=== PATIENT | male | born 1975 | race African-American/Black ===

== ENCOUNTER 2024-12-04 06:42 | Inpatient (IN) | payer OTHER ==
[~2024-12-04] VITALS: Ht 180.3 cm; Wt 99.4 kg
[2024-12-04] MEDS: IV NS 0.9% 500 ML BAG IV ONE (07:30)
[2024-12-04 07:31] LABS: BASOPHILS % (AUTO) 0.3 % (0.0-2.0); EOSINOPHILS % (AUTO) 0.2 % (0.0-6.0); HEMATOCRIT 51 % (39-51); HEMOGLOBIN 16.7 g/dL (13.5-17.5); LYMPHOCYTES # (AUTO) 0.8 K/uL (0.8-4.8); LYMPHOCYTES % (AUTO) 7.1 % (20.0-44.0); MEAN CORPUSCULAR HEMOGLOBIN 31 PG (26.0-33.0); MEAN CORPUSCULAR HGB CONC 33 g/dl (31.0-36.0); MEAN CORPUSCULAR VOLUME 96 fL (80-96); MONOCYTES # (AUTO) 0.5 K/uL (0.1-1.30); MONOCYTES % (AUTO) 4.2 % (2.0-12.0); NEUTROPHILS # (AUTO) 9.6 K/uL (1.8-8.9); NEUTROPHILS % (AUTO) 88.2 % (43.0-81.0); PLATELET COUNT (AUTO) 234 K/uL (150-450); RED BLOOD CELL COUNT(AUTO) 5.35 MIL/uL (4.5-6.0); RED CELL DISTRIBUTION WIDTH 14.5 % (11.5-15.0); WHITE BLOOD COUNT (AUTO) 10.9 K/uL (4.3-11.0)
[2024-12-04] MEDS ORDERED: ONDANSETRON HCL/PF 4 MG/2 ML VIAL ONE (07:34)
[2024-12-04 07:39] LABS: CALCIUM, SERUM 9.4 mg/dL (8.5-10.1); CARBON DIOXIDE 17 mmol/L (21-32); CHLORIDE 95 mmol/L (98-107); CREATININE 2.1 mg/dL (0.6-1.3); GLUCOSE 207 mg/dL (74-106); POTASSIUM 4.3 mmol/L (3.5-5.1); SODIUM SERUM 138 mmol/L (136-145); UREA NITROGEN, BLOOD 22 mg/dL (7-18)
[2024-12-04 07:45] LABS: ALANINE AMINOTRANSFERASE 12 U/L (12-78); ALKALINE PHOSPHATASE 93 U/L (46-116); ASPARTATE AMINOTRANSFERASE 18 U/L (15-37); BILIRUBIN,DIRECT 0.3 mg/dL (0.0-0.2); INR 1.06 (0.91-1.10); PARTIAL THROMBOPLASTIN TIME 25.9 SEC (24.3-34.3); PROTHROMBIN TIME 11.2 SECS (9.2-11.1); TOTAL PROTEIN, SERUM 8.3 g/dL (6.4-8.2)
[2024-12-04 07:46] LABS: ALCOHOL, BLOOD < 10 mg/dL (0-10)
[2024-12-04] MEDS: ONDANSETRON HCL/PF 4 MG/2 ML VIAL IVP ONE (07:53)
[2024-12-04] MEDS ORDERED: EMPA1TAB21 PO (08:48)
[2024-12-04] MEDS ORDERED: INSU100I30 SQ (08:48)
[2024-12-04] MEDS ORDERED: ZEPBOUND SQ (08:48)
[2024-12-04] MEDS ORDERED: ONDANSETRON HCL/PF 4 MG/2 ML VIAL IVP PRN (09:00)
[2024-12-04] MEDS ORDERED: MAG HYDROX/AL HYDROX/SIMETH 30 ML UDC PO PRN (09:00)
[2024-12-04] MEDS ORDERED: DEXTROSE 50%-WATER 50 ML DISP.SYRIN IV PRN (09:00)
[2024-12-04] MEDS ORDERED: PANTOPRAZOLE 40 MG VIAL IV SCH (09:00)
[2024-12-04 16:00] VITALS: BP 119/71; TEMP 98.2; O2SAT 100
[2024-12-04 16:05] LABS: AMPHETAMINE, URINE NEGATIVE (NEGATIVE); BARBITURATE, URINE NEGATIVE (NEGATIVE); BENZODIAZEPINE, URINE NEGATIVE (NEGATIVE); CANNABINOID, URINE NEGATIVE (NEGATIVE); COCCAINE, URINE NEGATIVE (NEGATIVE); OPIATE, URINE NEGATIVE (NEGATIVE); PHENCYCLIDINE SCREEN,URINE NEGATIVE (NEGATIVE)
[2024-12-04] MEDS: BLOOD SUGAR DIAGNOSTIC 1 EACH STRIP IN SCH (17:38)
[2024-12-04] MEDS: INSULIN REGULAR, HUMAN 100 UNIT/ML 3 ML VIAL SQ PRN (17:40)
[2024-12-04] MEDS: IV NS 0.9% 1,000 ML IV SCH (18:58)
[2024-12-04 20:00] VITALS: BP 111/65; TEMP 98.1; O2SAT 98
[2024-12-04] MEDS: MENTHOL/CETYLPYRD (CEPACOL) 1 LOZ LOZENGE PO PRN (21:00)
[2024-12-04 22:58] VITALS: BP 111/65; TEMP 98.1; O2SAT 98
[2024-12-05 06:46] LABS: BASOPHILS % (AUTO) 0.6 % (0.0-2.0); EOSINOPHILS # (AUTO) 0.2 K/uL (0.0-0.7); EOSINOPHILS % (AUTO) 3.6 % (0.0-6.0); HEMATOCRIT 44 % (39-51); HEMOGLOBIN 14.4 g/dL (13.5-17.5); LYMPHOCYTES # (AUTO) 1.6 K/uL (0.8-4.8); MEAN CORPUSCULAR HEMOGLOBIN 31 PG (26.0-33.0); MEAN CORPUSCULAR HGB CONC 33 g/dl (31.0-36.0); MEAN CORPUSCULAR VOLUME 94 fL (80-96); MONOCYTES # (AUTO) 0.7 K/uL (0.1-1.30); MONOCYTES % (AUTO) 11.8 % (2.0-12.0); NEUTROPHILS # (AUTO) 3.6 K/uL (1.8-8.9); PLATELET COUNT (AUTO) 198 K/uL (150-450); RED BLOOD CELL COUNT(AUTO) 4.61 MIL/uL (4.5-6.0); RED CELL DISTRIBUTION WIDTH 14.3 % (11.5-15.0); WHITE BLOOD COUNT (AUTO) 6.3 K/uL (4.3-11.0)
[2024-12-05 06:48] LABS: CALCIUM, SERUM 8.7 mg/dL (8.5-10.1); CREATININE 1.9 mg/dL (0.6-1.3); MAGNESIUM 2.1 mg/dL (1.8-2.4); PHOSPHORUS 2.6 mg/dL (2.5-4.9); POTASSIUM 3.4 mmol/L (3.5-5.1)
[2024-12-05 07:00] VITALS: BP 116/65; TEMP 97.9; O2SAT 96
[2024-12-05] MEDS: PANTOPRAZOLE 40 MG TABLET.DR PO SCH (08:51)
[2024-12-05] MEDS: POTASSIUM CHLORIDE 10 MEQ TABLET.SA PO ONE (10:55)
[2024-12-05 16:00] VITALS: BP 126/86; TEMP 98.2; O2SAT 99
[2024-12-05] MEDS: ACETAMINOPHEN 325 MG TABLET PO PRN (18:48)
[2024-12-05] MEDS: MAGNESIUM HYDROXIDE 30 ML UDC PO PRN (18:51)
[2024-12-05 20:00] VITALS: BP 122/81; TEMP 98.1; O2SAT 86
[2024-12-05] MEDS: IV NS 0.9% 1,000 ML IV PRN (20:35)
[2024-12-06 00:06] LABS: APPEARANCE,URINE CLEAR (CLEAR); BILIRUBIN,URINE 1+ (NEGATIVE); BLOOD, URINE NEGATIVE Ery/uL (NEGATIVE); COLOR,URINE YELLOW (YELLOW); KETONES,URINE 1+ mg/dL (NEGATIVE); LEUKOCYTE ESTERASE ,URINE NEGATIVE (NEGATIVE); NITRITE, URINE NEGATIVE (NEGATIVE); PH,URINE 5.5 (5.0-8.0); PROTEIN,URINE NEGATIVE (NEGATIVE); UGLUCOSE 3+ mg/dL (NEGATIVE); UROBILINOGEN,URINE 0.2 EU/dL (0.2)
[2024-12-06 00:18] LABS: ADD URINE CULTURE NO; BACTERIA,URINE None seen /HPF (None Seen); RBC,URINE NONE SEEN /HPF (0-2); SQUAMOUS EPITHELIAL CELL,UR None Seen /HPF (None Seen); WBC,URINE 0-2 /HPF (0-3)
[2024-12-06 00:26] LABS: CREATININE, URINE 159.3 MG/DL (30.0-125.0); URINE TOTAL PROTEIN 22.6 mg/dL (0-11.9)
[2024-12-06 01:58] LABS: EOSINOPHIL,URINE None Seen
[2024-12-06 07:00] VITALS: BP 151/95; TEMP 97.9; O2SAT 99
[2024-12-06 07:14] LABS: BASOPHILS % (AUTO) 0.5 % (0.0-2.0); EOSINOPHILS # (AUTO) 0.3 K/uL (0.0-0.7); EOSINOPHILS % (AUTO) 4.2 % (0.0-6.0); HEMATOCRIT 43 % (39-51); HEMOGLOBIN 14.2 g/dL (13.5-17.5); LYMPHOCYTES # (AUTO) 1.8 K/uL (0.8-4.8); LYMPHOCYTES % (AUTO) 27.7 % (20.0-44.0); MEAN CORPUSCULAR HEMOGLOBIN 32 PG (26.0-33.0); MEAN CORPUSCULAR HGB CONC 33 g/dl (31.0-36.0); MEAN CORPUSCULAR VOLUME 95 fL (80-96); MONOCYTES # (AUTO) 0.7 K/uL (0.1-1.30); MONOCYTES % (AUTO) 11.3 % (2.0-12.0); NEUTROPHILS # (AUTO) 3.7 K/uL (1.8-8.9); NEUTROPHILS % (AUTO) 56.3 % (43.0-81.0); PLATELET COUNT (AUTO) 183 K/uL (150-450); RED CELL DISTRIBUTION WIDTH 14.4 % (11.5-15.0); WHITE BLOOD COUNT (AUTO) 6.5 K/uL (4.3-11.0)
[2024-12-06 07:56] LABS: BILIRUBIN,TOTAL 0.8 mg/dL (0.2-1.0); CALCIUM, SERUM 8.5 mg/dL (8.5-10.1); CREATININE 1.6 mg/dL (0.6-1.3); MAGNESIUM 2.2 mg/dL (1.8-2.4); PHOSPHORUS 1.9 mg/dL (2.5-4.9); POTASSIUM 3.2 mmol/L (3.5-5.1); TOTAL PROTEIN, SERUM 6.5 g/dL (6.4-8.2)
[2024-12-06] MEDS: LORAZEPAM 0.5 MG TABLET PO ONE (10:59)
[2024-12-06] MEDS: POTASSIUM CHLORIDE 10 MEQ TABLET.SA PO SCH (11:06)
[2024-12-06 13:51] VITALS: BP 150/89; TEMP 97.6; O2SAT 100
[2024-12-06 13:52] VITALS: BP 132/86; TEMP 97.7; O2SAT 98
[2024-12-06 13:53] VITALS: BP 129/83; TEMP 97.9; O2SAT 98
[2024-12-06 16:00] VITALS: BP 147/84; TEMP 98.4; O2SAT 98
[2024-12-06] MEDS: K PHOS NEUTRAL 250 MG TABLET PO ONE (17:50)
[2024-12-06 20:00] VITALS: BP_SYST 141; BP_SYST 149; BP_SYST 162; BP_SYST 169; BP_DIAS 92; BP_DIAS 99; TEMP 98.2; O2SAT 100
[2024-12-06] MEDS: ZOLPIDEM TARTRATE 5 MG TABLET PO PRN (22:46)
[2024-12-07] VITALS (7 sets, daily range): BP systolic 142–156; BP diastolic 64–96; TEMP 97.2–98.1; O2SAT 96–99
[2024-12-07 07:24] LABS: CALCIUM, SERUM 8.3 mg/dL (8.5-10.1); CREATININE 1.3 mg/dL (0.6-1.3); POTASSIUM 3.1 mmol/L (3.5-5.1)
[2024-12-07] MEDS: POTASSIUM CL. PREMIX PERIPHER. 50 ML IV SCH (08:50)
[2024-12-07 09:07] LABS: PTH, INTACT 20 pg/mL (15-65)
[2024-12-07] MEDS: POTASSIUM CHLORIDE 20 MEQ TAB.PRT.SR PO SCH (10:14)
[2024-12-07 10:24] LABS: CHOLESTEROL 172 mg/dL (<200); HDL CHOLESTEROL 63 mg/dL (40-60); LDL 88 mg/dL (0-99); TRIGLYCERIDES 87 mg/dL (30-150)
[2024-12-07] MEDS ORDERED: METFORMIN 500 MG TABLET PO SCH (17:00)
[2024-12-07] MEDS ORDERED: DEXTROSE 50%-WATER 50 ML DISP.SYRIN IV PRN (17:00)
[2024-12-07] MEDS: BLOOD SUGAR DIAGNOSTIC 1 EACH STRIP IN SCH (17:31)
[2024-12-07] MEDS: INSULIN REGULAR, HUMAN 100 UNIT/ML 3 ML VIAL SQ PRN (17:33)
[2024-12-08] VITALS: BP 158/101; TEMP 98.2; O2SAT 100
[2024-12-08 00:32] VITALS: BP 158/101; TEMP 98.2; O2SAT 100
[2024-12-08 04:00] VITALS: BP 163/79; TEMP 97.7; O2SAT 100
[2024-12-08 06:28] VITALS: BP 163/79; TEMP 97.7; O2SAT 100
[2024-12-08 06:55] LABS: BASOPHILS # (AUTO) 0.1 K/uL (0.0-0.2); BASOPHILS % (AUTO) 1.1 % (0.0-2.0); EOSINOPHILS # (AUTO) 0.2 K/uL (0.0-0.7); EOSINOPHILS % (AUTO) 5.5 % (0.0-6.0); HEMATOCRIT 41 % (39-51); HEMOGLOBIN 13.6 g/dL (13.5-17.5); LYMPHOCYTES # (AUTO) 1.6 K/uL (0.8-4.8); LYMPHOCYTES % (AUTO) 35.7 % (20.0-44.0); MEAN CORPUSCULAR HEMOGLOBIN 31 PG (26.0-33.0); MEAN CORPUSCULAR HGB CONC 33 g/dl (31.0-36.0); MEAN CORPUSCULAR VOLUME 95 fL (80-96); MONOCYTES # (AUTO) 0.5 K/uL (0.1-1.30); MONOCYTES % (AUTO) 10.1 % (2.0-12.0); NEUTROPHILS # (AUTO) 2.2 K/uL (1.8-8.9); NEUTROPHILS % (AUTO) 47.6 % (43.0-81.0); PLATELET COUNT (AUTO) 167 K/uL (150-450); RED BLOOD CELL COUNT(AUTO) 4.36 MIL/uL (4.5-6.0); RED CELL DISTRIBUTION WIDTH 13.7 % (11.5-15.0); WHITE BLOOD COUNT (AUTO) 4.6 K/uL (4.3-11.0)
[2024-12-08 07:38] LABS: ALBUMIN 2.8 g/dL (3.4-5.0); BILIRUBIN,TOTAL 0.6 mg/dL (0.2-1.0); CALCIUM, SERUM 8.5 mg/dL (8.5-10.1); CREATININE 1.2 mg/dL (0.6-1.3); PHOSPHORUS 2.7 mg/dL (2.5-4.9); POTASSIUM 3.4 mmol/L (3.5-5.1)
[2024-12-08 08:00] VITALS: BP 152/89; TEMP 97.9; O2SAT 98
[2024-12-08] MEDS: POTASSIUM CHLORIDE 20 MEQ TAB.PRT.SR PO SCH (09:51)
[2024-12-08] MEDS ORDERED: IV NS 0.9% 250 ML IV ONE (10:53)
[2024-12-08] MEDS ORDERED: IOHEXOL-350 100 ML VIAL IV ONE (10:53)
[2024-12-08] MEDS ORDERED: CT SWABBABLE VALVE TRANS SET 1 EA INFUS.SET MC ONE (10:53)
[2024-12-08 12:00] VITALS: BP 151/101; TEMP 97.3; O2SAT 99
== END 2024-12-08 14:30 | disposition home or self-care (01) | DRG 204 ==
LOC: ER 06:47 → MED 14:54 → TELE 12-06 23:24
PROVIDERS: ATTEND Student in an Organized Health Care Education/Training Program
DX: I95.1 Orthostatic hypotension (principal); N17.9 Acute kidney failure, unspecified; E83.9 Disorder of mineral metabolism, unspecified; E86.0 Dehydration; G90.89 Other disorders of autonomic nervous system; E11.22 Type 2 diabetes mellitus with diabetic chronic kidney disease; E66.9 Obesity, unspecified; E78.5 Hyperlipidemia, unspecified; I12.9 Hypertensive chronic kidney disease with stage 1 through stage 4 chronic kidney disease, or unspecified chronic kidney disease; N18.9 Chronic kidney disease, unspecified; E87.6 Hypokalemia; Z68.30 Body mass index [BMI] 30.0-30.9, adult; E11.65 Type 2 diabetes mellitus with hyperglycemia; Z79.4 Long term (current) use of insulin; Z79.84 Long term (current) use of oral hypoglycemic drugs; Z91.81 History of falling
CPT/HCPCS: 36415; 70450-TC; 70498-TC; 71045-TC; 73140-TC; 73502; 76770-TC; 80048-TC; 80053-TC; 80061-TC; 80076-TC; 81001; 82550-TC; 82570-TC; 82962-TC; 83735-TC; 83970; 84100-TC; 84155; 84165; 84300-TC; 84439-TC; 84443-TC; 84484-TC; 85025-TC; 85730-TC; 93307-TC; 93880-TC; 97116-TC; 97530-TC; A4223; G0378; G0480; J1815; J2405; J3480; J7030; J7040; J7050; Q9967

== ENCOUNTER 2024-12-10 16:40 | Emergency (ER) | payer OTHER ==
[~2024-12-10] VITALS: Ht 180.3 cm; Wt 108.9 kg
[~2024-12-10 16:40] MED LIST: EMPA1TAB21 PO; INSU100I30 SQ; ZEPBOUND SQ
[2024-12-10] MEDS: IV NS 0.9% 1,000 ML BAG IV ONE (17:25)
[2024-12-10 17:26] LABS: BASOPHILS % (AUTO) 0.9 % (0.0-2.0); EOSINOPHILS # (AUTO) 0.2 K/uL (0.0-0.7); EOSINOPHILS % (AUTO) 4.2 % (0.0-6.0); HEMATOCRIT 50 % (39-51); HEMOGLOBIN 16.4 g/dL (13.5-17.5); LYMPHOCYTES # (AUTO) 1.3 K/uL (0.8-4.8); LYMPHOCYTES % (AUTO) 26.6 % (20.0-44.0); MEAN CORPUSCULAR HEMOGLOBIN 31 PG (26.0-33.0); MEAN CORPUSCULAR HGB CONC 33 g/dl (31.0-36.0); MEAN CORPUSCULAR VOLUME 95 fL (80-96); MONOCYTES # (AUTO) 0.6 K/uL (0.1-1.30); MONOCYTES % (AUTO) 11.6 % (2.0-12.0); NEUTROPHILS # (AUTO) 2.7 K/uL (1.8-8.9); NEUTROPHILS % (AUTO) 56.7 % (43.0-81.0); PLATELET COUNT (AUTO) 233 K/uL (150-450); RED BLOOD CELL COUNT(AUTO) 5.22 MIL/uL (4.5-6.0); RED CELL DISTRIBUTION WIDTH 14.8 % (11.5-15.0); WHITE BLOOD COUNT (AUTO) 4.8 K/uL (4.3-11.0)
[2024-12-10 17:39] LABS: CALCIUM, SERUM 9.4 mg/dL (8.5-10.1); CARBON DIOXIDE 29 mmol/L (21-32); CHLORIDE 95 mmol/L (98-107); CREATININE 1.5 mg/dL (0.6-1.3); GLUCOSE 190 mg/dL (74-106); POTASSIUM 3.9 mmol/L (3.5-5.1); SODIUM SERUM 135 mmol/L (136-145); UREA NITROGEN, BLOOD 15 mg/dL (7-18)
[2024-12-10 17:45] LABS: ALANINE AMINOTRANSFERASE 11 U/L (12-78); ALBUMIN 3.8 g/dL (3.4-5.0); ALKALINE PHOSPHATASE 83 U/L (46-116); ASPARTATE AMINOTRANSFERASE 20 U/L (15-37); BILIRUBIN,DIRECT 0.2 mg/dL (0.0-0.2); BILIRUBIN,TOTAL 0.7 mg/dL (0.2-1.0)
[2024-12-10 17:59] LABS: LACTIC ACID 1.2 mmol/L (0.4-2.0)
[2024-12-10 18:43] VITALS: TEMP 97.9
[2024-12-10 20:59] VITALS: BP 145/80; O2SAT 96
== END 2024-12-10 20:55 | disposition home or self-care (01) ==
LOC: ER 16:51
DX: R00.0 Tachycardia, unspecified (principal); R00.2 Palpitations; E86.0 Dehydration; I10 Essential (primary) hypertension; E11.9 Type 2 diabetes mellitus without complications; Z79.4 Long term (current) use of insulin; Z79.84 Long term (current) use of oral hypoglycemic drugs
CPT/HCPCS: 99285; 96360; 71045; 93005; 85025; 80048; 87040 ×2; 83605; 80076; 85378; 36415; 84484 ×2; J7030

== ENCOUNTER 2025-04-25 22:05 | Emergency (ER) | payer OTHER ==
[~2025-04-25] VITALS: Ht 180.3 cm; Wt 102.5 kg
[2025-04-25] MEDS ORDERED: MECLIZINE HCL 25 MG TABLET ONE (23:30)
[2025-04-25] MEDS: MECLIZINE HCL 25 MG TABLET PO ONE (23:35)
[2025-04-25 23:37] LABS: PLATELET COUNT (AUTO) 211 K/uL (150-450); RED BLOOD CELL COUNT(AUTO) 4.86 MIL/uL (4.5-6.0); RED CELL DISTRIBUTION WIDTH 12.7 % (11.5-15.0); WHITE BLOOD COUNT (AUTO) 6.8 K/uL (4.3-11.0)
[2025-04-25 23:42] LABS: CALCIUM, SERUM 9.2 mg/dL (8.5-10.1); CREATININE 1.8 mg/dL (0.6-1.3); SODIUM SERUM 143.0 mmol/L (136-145); UREA NITROGEN, BLOOD 22.0 mg/dL (7-18)
[2025-04-25 23:47] LABS: ASPARTATE AMINOTRANSFERASE 23.0 U/L (15-37); TOTAL PROTEIN, SERUM 7.2 g/dL (6.4-8.2)
[2025-04-25] MEDS: IV NS 0.9% 1,000 ML BAG IV ONE (23:47)
[2025-04-26] MEDS ORDERED: AMOX-430 PO (01:34)
[2025-04-26 01:56] VITALS: BP 120/75; TEMP 98; O2SAT 98
== END 2025-04-26 01:58 | disposition home or self-care (01) ==
LOC: ER 22:05
DX: N28.9 Disorder of kidney and ureter, unspecified (principal); K62.89 Other specified diseases of anus and rectum; E11.9 Type 2 diabetes mellitus without complications; E86.0 Dehydration; I10 Essential (primary) hypertension; Z79.4 Long term (current) use of insulin; Z79.84 Long term (current) use of oral hypoglycemic drugs; Z60.2 Problems related to living alone
CPT/HCPCS: 99285; 70450; 96360; 71045; 93005; 74176; 85025; 80048; 80076; 36415; 82962; J8597; J7030